=== PATIENT | female | born 1990 | race Caucasian/White ===

== ENCOUNTER 2025-02-12 08:58 | Outpatient (CLI) | payer OTHER | END 2025-02-12 09:03 | disposition home or self-care (01) | LOC: SONOGRAMA 08:58 | PROVIDERS: ATTEND Pathology Anatomic Pathology | DX: D34 Benign neoplasm of thyroid gland (principal); E06.3 Autoimmune thyroiditis; E04.2 Nontoxic multinodular goiter ==